=== PATIENT | female | born 1995 | race Asian ===

== ENCOUNTER 2025-03-27 09:47 | Emergency (ER) | payer OTHER, SELFPAY ==
[2025-03-27 09:55] VITALS: BP 117/77
[2025-03-27 11:19] VITALS: BMI 21.5
--- NOTE | 2025-03-27 12:44 | ED.GENMED ---
History of Present Illness
General
Chief Complaint: Ear Problem
Source: patient
Exam Limitations: none
Time Seen by Provider: 03/27/25 11:19
Nursing documentation reviewed up to this point in time: agreed with
History of Present Illness
History of Present Illness:
see MDM
Review of Systems
Review of Systems
Allergies reviewed?: Yes
All Other Systems: Not applicable
Phy Exam
Physical Exam
Physical Exam:
GENERAL: Alert , in no apparent distress
EYE: pupils equal and reactive
NECK: Supple, no JERMAINE, no bruits, full painless ROM
ENT:b/l TMs mildly fluid filled, clear, no erythema
hearing intact to finger rubs
no tenderness
canals normal
no mastoid tendneress
no drainage
turbinates swollen and red
but no tonsillar hypertrophy or exudates
CARDIAC: Regular rate and rhythm, no edema
LUNGS: Clear breath sounds bilaterally, no acute respiratory distress, no wheezes/rales/rhonchi, occ cough
ABDOMEN: Soft, without focal tenderness, no r/g, no cvat, normal bowel sounds
NEUROLOGICAL: Alert and oriented, no focal neuro deficits, cn intact, normal strength and sensation and reflexes
SKIN: Warm and dry, skin intact.
MUSCULOSKELETAL: No edema, well perfused.
PSYCH: Normal and appropriate interaction.
Course
Vital Signs
Initial and Last Documented VS:
Initial Vital Signs
Temp Pulse Resp BP Pulse Ox
36.6 C 79 16 117/77 98
03/27/25 09:55 03/27/25 09:55 03/27/25 09:55 03/27/25 09:55 03/27/25 09:55
Last Documented Vital Signs
Temp Pulse Resp BP Pulse Ox
36.6 C 79 16 117/77 98
03/27/25 09:55 03/27/25 09:55 03/27/25 09:55 03/27/25 09:55 03/27/25 09:55
MDM/Problems Addressed
Differential Diagnosis Includes:
see MDM
MDM/Problems Addressed:
Note:
CHIEF COMPLAINT(S)
Ringing in the right ear with intermittent buzzing and a sensation of pressure, reported this morning.
HISTORY OF PRESENT ILLNESS
The patient is a 29-year-old female who reports waking up this morning with a low humming sound in both ears, more pronounced on the right side. She describes the sensation as consistent, with varying degrees of loudness throughout the morning. The
patient did not report any hearing loss; MAY have mild head pain but it is minimal. no neck pain. no trauma. no fhx o f aneurysms. no dizziness.
There is associated pressure in the ear that she is unable to relieve by popping her ears. She denies any recent barotrauma, swimming, or exposure to loud concerts that could have contributed to her symptoms.
The patient has a history of chronic sinus issues, which have worsened recently, prompting her to use Flonase (fluticasone propionate) for relief. She noted some nasal congestion and clear nasal discharge, though with slight color changes this
morning. She also reports dryness when swallowing, but no significant difficulty with swallowing has been noted.
ADDITIONAL HISTORY OBTAINED FROM SOURCES OTHER THAN THE PATIENT
None available.
CHRONIC MEDICAL CONDITIONS SIGNIFICANTLY AFFECTING CARE
Chronic sinus issues.
MEDICATIONS
The patient is currently taking control pills and has been using Flonase (fluticasone propionate) for sinus symptoms.
PHYSICAL EXAM
- Auditory Examination: Slight clear fluid behind the right ear drum; no signs of infection, ear wax, or other abnormalities.
- Cranial Nerves: Intact on examination, no neurological deficits noted.
- Nursing notes reviewed and vital signs reviewed.
PLAN
- Consultation with supervising physician, Dr. Miller, to discuss potential follow-up with an Ear, Nose, and Throat specialist.
- Consideration of an evaluation by an Ear, Nose, and Throat specialist for further testing of ear-related symptoms and potential M�ni�res disease.
- Possible initiation of a steroid course to address fluid in the ear, depending on further evaluation by Dr. Miller.
DIFFERENTIAL DIAGNOSIS
The Differential Diagnosis includes, in no particular order and is not limited to:
1. Otitis media with effusion
2. M�ni�res disease
3. Inner ear infection
4. Eustachian tube dysfunction
5. Barotrauma, although unlikely
6. Vestibular neuronitis
7. Temporomandibular joint syndrome
8. Acoustic neuroma
9. Neurological conditions affecting the auditory pathway
10. Sinusitis-induced ear symptoms
CARE-UPDATE
03/27/25 - 11:51
Patient is a 29-year-old female with bilateral tinnitus, more pronounced on the right side, without associated pain, fever, facial pressure, or neurological symptoms. Exam reveals she is afebrile, with swollen turbinates and bilateral serous fluid
without erythema, patent ear canals, normal hearing, and no vascular bruits, suggesting serous otitis media. The recommended management includes a Medrol dose pack, an antihistamine, and a decongestant, with follow-up at the ENT clinic. Dr. Hubbard
from ENT concurs with the treatment plan and will expedite an appointment this week. Infectious etiology is deemed unlikely, so antibiotics are not indicated. Discussed with ER attending, Dr. Long, and confirmed absence of neurovascular red flags
or abnormalities on the neurological exam.
*Pulse Oximetry
SaO2: 98
Oxygen Mode of Delivery: Room air
Patient hypoxic: no (98)
*Critical Care Note
Total Time (30-74mins, 75-104mins- exclusive of procedures): Not Applicable
ED Attending Note
-
Portions of this chart may have been created with voice recognition software.� Occasional wrong word or��sound alike� substitutions may have occurred due to the inherent limitations of voice recognition software.
Discharge Plan
Departure
Patient Disposition: Home (Routine Discharge)
Date of Disposition: 03/27/25
Time of Disposition: 11:50
Patient with high blood pressure during this ER visit?: No
Condition: Fair
Covid-19: Not Applicable
Discharge Problem:
Acute serous otitis media
Instructions: Serous Otitis Media (DC)
Prescriptions:
New
methylprednisolone [Medrol (Thierry)] 4 mg tablets,dose pack
See Rx Instructions .ROUTE .COMPLEX Qty: 21 0RF
Rx Instructions:
for 6 days
Referrals:
Zayda Hyde MD [Family Provider, Family Practice] - Follow up in 5-7 days
Marc Hubbard MD [Active, Otology] - Follow up in 2-3 days
Activity Restrictions/Additional Instructions:
I spoke with Dr. Hubbard on-call for ENT. He said you can call after you leave here and make an appointment, they likely could see you this week you can tell them that you were in our emergency department and I spoke with him directly. For now we
will try Medrol Dosepak and take as prescribed.
Follow the instructions
Continue your Flonase, take Zyrtec once a day and try a decongestant like Sudafed 30 milligrams 2-4 times a day
These are all [id number]
Return for worsening symptoms like severe headache, facial numbness, facial droop, blurred vision, neck pain etc. Otherwise ENT should do more formal ear testing
Interventions
Interventions:
*Risk Screen - Suicide Last Done: 03/27/25 09:55
*General Assessment Last Done: 03/27/25 11:19
*Neglect/Abuse Screening Last Done: 03/27/25 09:55
*Nursing Disposition Last Done: 03/27/25 12:13
Discharge Date and Time
Discharge Date/Time: 03/27/25 12:14
Print Language: UPPER SORBIAN
== END 2025-03-27 12:14 | disposition home or self-care (01) ==
LOC: EMR 09:47
PROVIDERS: EMERGENCY PHYSICIAN Emergency Medicine; FAMILY PHYSICIAN Family Medicine
DX: H65.03 Acute serous otitis media, bilateral (principal); Z79.3 Long term (current) use of hormonal contraceptives
CPT/HCPCS: 99283